=== PATIENT | female | born 1960 | race Caucasian/White ===

== ENCOUNTER 2018-09-17 12:58 | Inpatient (IN) | payer MEDICARE ==
[~2018-09-17] VITALS: Ht 165.1 cm; Wt 135.6 kg
[2018-09-17] MEDS ORDERED: MOBIC7.5 MG PO (13:08)
[2018-09-17] MEDS ORDERED: EFFIENT10 MG PO (13:09)
[2018-09-17] MEDS ORDERED: LASIX20 MG PO (13:09)
[2018-09-17] MEDS ORDERED: TOPROL XL100 MG PO (13:10)
[2018-09-17] MEDS ORDERED: KLONOPIN0.5 MG PO (13:10)
[2018-09-17] MEDS ORDERED: TRAZODONE HCL150 MG PO (13:10)
[2018-09-17] MEDS ORDERED: CRESTOR10 MG PO (13:11)
[2018-09-17] MEDS ORDERED: PRINIVIL20 MG PO (13:11)
[2018-09-17] MEDS ORDERED: ULTRAM50 MG PO (13:12)
--- NOTE | 2018-09-17 14:00 | NUR ---
LINEN CHANGE AND NEW BRIEF. PT RED AND SENSITIVE IN THE PERINEAL AREA. PT TOLERATED WELL. CALL LIGHT WITHIN REACH WILL CONTINUE TO MONITOR.
[2018-09-17 14:30] LABS: ALBUMIN 3.5 g/dL (3.4-5.0); ANION GAP 13.7 mmol/L (8-16); BILIRUBIN - TOTAL 0.51 mg/dL (0.2-1.3); CALCIUM 8.9 mg/dL (8.5-10.1); CARBON DIOXIDE 25.3 mmol/L (21.0-32.0); CREATININE - SERUM 1.3 mg/dL (0.6-1.3); PROTEIN - SERUM 7.3 g/dL (6.4-8.2)
[2018-09-17 14:33] LABS: TROPONIN-I 0.042 ng/mL (0.000-0.060)
[2018-09-17 14:54] LABS: APPEARANCE HAZY (CLEAR); BILIRUBIN NEGATIVE (NEGATIVE); COLOR YELLOW (YELLOW); GLUCOSE NEGATIVE (NEGATIVE); KETONE NEGATIVE (NEGATIVE); NITRITE NEGATIVE (NEGATIVE); PROTEIN NEGATIVE (NEGATIVE); SPECIFIC GRAVITY 1.025 (1.005-1.020); UROBILINOGEN NORMAL (NORMAL)
[2018-09-17 14:55] LABS: BACTERIA FEW /hpf (NONE SEEN); EPITHELIAL CELLS 0-5 /hpf (0-5); RED CELLS - URINE 0-5 /hpf (0-5)
[2018-09-17 14:56] LABS: MUCUS <1+ /lpf (NONE SEEN)
[2018-09-17 15:05] LABS: HEMATOCRIT 45.4 % (36.0-48.0); HEMOGLOBIN 14.8 g/dL (12-16); MCH 31.7 pg (26.0-34.0); MCHC 32.6 g/dL (31.0-37.0); MCV 97.2 fL (80.0-100.0); MEAN PLATELET VOLUME 10.3 fL (7.4-10.4); PLATELET COUNT 94 10x3/uL (130-400); RBC 4.67 10x6/uL (4.00-5.40); RDW 13.8 % (11.5-14.5); WBC 3.2 10x3/uL (4.8-10.8)
[2018-09-17 18:07] LABS: LYMPHOCYTES 32 % (15-50); MONOCYTES 1 % (2-11); NEUTROPHILS 67 % (40-80); PLATELET ESTIMATE DECREASED
--- NOTE | 2018-09-17 19:18 | NUR ---
ANSWERED PT'S CALL LIGHT, PT ASSISTED IN USING PHONE IN ROOM. DENIES ANY FURTHER NEEDS.
[2018-09-17 20:25] VITALS: BP 147/63
--- NOTE | 2018-09-17 20:30 | NUR ---
VERBAL ORDER PER DR. PABLO TO INSERT FECAL MANAGEMENT SYSTEM.
--- NOTE | 2018-09-17 21:00 | NUR ---
EDUAR CARE PROVIDED TO PT AND FECAL MANAGEMENT SYSTEM PLACED, PT TOLERATED WELL. BED LINENS CHANGED. PT DENIES ANY NEEDS. WILL CONTINUE TO MONITOR.
--- NOTE | 2018-09-17 22:40 | NUR ---
PT ARRIVED TO ROOM 1203 PT IS AAO, LEFT AC 20G WITH NS INFUSING. RECTAL TUBE NOTED. S1S2 RRR LUNGS CLEAR. ABDOMEN IS SOFT, OBESE HYPER ACTIVE UPPER QUAD ACTIVE LOWER QUADS. PT HAS REDNESS UNDER ABDOMEN FOLD. REDNESS AND EXCORIATION ON BUTTOCK AND EDUAR AREA FROM DIARRHEA. PT IS CLEAN AT THIS TIME. NO S/S OF DISTRESS. DENIES ANY NEEDS. WILL CPOC
[2018-09-17] MEDS ORDERED: LYRICA100 MG PO (22:43)
--- NOTE | 2018-09-17 23:29 | NUR ---
PT LEFT AC 20G IV TENDER AND PT STATES DISCOMFORT. REMOVED IV AND PLACED A 22G PIV AND STARTED NS ORDERED. WILL CPOC
[2018-09-18] VITALS (7 sets, daily range): BP systolic 136–195; BP diastolic 49–82; Ht 165.1 cm; Wt 135.6 kg
--- NOTE | 2018-09-18 01:20 | NUR ---
PT INCONT A LARGE AMOUNT OF URINE, COMPLETE BED CHANGE. PT REPOSITONED. RECTAL TUBE INTACT. PT WILL CALL FOR ASSIST WHEN NEEDED. NO S/S OF DISTRESS. BEDLOW AND CALL LIGHT IN REACH. WILL CPOC
--- NOTE | 2018-09-18 03:10 | NUR ---
PT DOCUMENTATION SUPERVISOR LIGHT, PT INCONT OF URINE, THIS RN AND MINAL CISNEROS, RN TO ROOM, PT CLEANED UP WITH WET WARM WIPES, BUTT PASTE APPLIED, RECTAL TUBE INTACT, COMPLETE BEDDING CHANGE, PT DENIES FURTHER NEEDS, BED IN LOW POSITION, SIDE RAILS X 2, CALL LIGHT IN REACH
[2018-09-18 06:43] LABS: HEMATOCRIT 40.6 % (36.0-48.0); HEMOGLOBIN 13.3 g/dL (12-16); MCH 31.3 pg (26.0-34.0); MCHC 32.8 g/dL (31.0-37.0); MCV 95.5 fL (80.0-100.0); MEAN PLATELET VOLUME 10.5 fL (7.4-10.4); PLATELET COUNT 88 10x3/uL (130-400); RBC 4.25 10x6/uL (4.00-5.40); RDW 13.7 % (11.5-14.5); WBC 2.6 10x3/uL (4.8-10.8)
[2018-09-18 07:06] LABS: BILIRUBIN - TOTAL 0.63 mg/dL (0.2-1.3); CALCIUM 8.8 mg/dL (8.5-10.1); CARBON DIOXIDE 21.9 mmol/L (21.0-32.0); MAGNESIUM - SERUM 2.1 mg/dL (1.8-2.4); PHOSPHOROUS 2.3 mg/dL (2.5-4.9); POTASSIUM - SERUM 3.9 mmol/L (3.5-5.1); PROTEIN - SERUM 6.7 g/dL (6.4-8.2)
[2018-09-18 07:11] LABS: CREATININE - SERUM 0.9 mg/dL (0.6-1.3)
--- NOTE | 2018-09-18 08:43 | NUR ---
INCONT OF BLADDER. PATIENT CLEANED AND LINENS CHANGED BY RETORT LOAD EXPEDITER.
[2018-09-18 09:40] LABS: LYMPHOCYTES 20 % (15-50); MONOCYTES 10 % (2-11); NEUTROPHILS 64 % (40-80); PLATELET ESTIMATE DECREASED
--- NOTE | 2018-09-18 12:50 | NUR ---
PT WAS TO BE NPO UNTIL AFTER SCAN, SIGN ON DOOR STATES NPO UNTIL AFTER SCAN AT 130, FANS BROUGHT PT TRAY INTO ROOM AND WHEN I HAD A CHANCE TO GO IN PT HAD EATEN HER PIE AND JUST OPENED CHIPS, TOOK TRAY AWAY AND CALLING NUCLEAR MED
--- NOTE | 2018-09-18 13:13 | NUR ---
RECEIVED CALL BACK FROM [facility] WITH NUCLEAR MEDS. STATED PT MUST BE NPO FOR 6 HOURS AND NO PAIN MEDS FOR SCAN, STATES SCAN TAKE AT LEAST 2 HOURS SO SHE WILL HAVE TO DO IN THE MORNING, ADVISED WILL HAVE PT NPO AFTR MIDNIGHT AND PLACE ORDER IN SYSTEM. CONTINUE WITH PLAN OF CARE
--- NOTE | 2018-09-18 20:37 | NUR ---
PATIENT RESTING IN BED WITH NO S/S OF DISTRESS. ADMINISTERED MEDS PER ORDERS. PATIENT DENIES OTHER NEEDS AT THIS TIME. BED IN LOWEST POSITION AND CALL LIGHT WITHIN REACH. ENCOURAGED THE PATIENT TO CALL IF SHE HAS NEEDS. WILL CONTINUE TO MONITOR. PATIENT REQUESTED PAIN MEDICATION FOR 8/10 PAIN. ADMINISTERED
--- NOTE | 2018-09-18 21:21 | NUR ---
PATIENT RESTING IN BED WITH NO S/S OF DISTRESS. ADMINISTERED MEDS PER ORDERS. PATIENT DENIES OTHER NEEDS AT THIS TIME. CLEANED PATIENT UP AFTER INCONTINENT EPISODE. BED IN LOWEST POSITION AND CALL LIGHT WITHIN REACH. ENCOURAGED THE PATIENT TO CALL IF SHE HAS NEEDS. WILL CONTINUE TO MONITOR.
[2018-09-19 00:52] VITALS: BP 99/46
[2018-09-19 05:00] VITALS: BP 136/63
[2018-09-19 07:22] LABS: BASOPHILS 0 % (0-2); EOSINOPHILS 2.3 % (0-7); HEMOGLOBIN 11.9 g/dL (12-16); IMMATURE GRANULOCYTES 0.4 % (0-5); LYMPHOCYTES 28.5 % (15-50); MCH 31.2 pg (26.0-34.0); MCHC 32.2 g/dL (31.0-37.0); MCV 96.9 fL (80.0-100.0); MEAN PLATELET VOLUME 10.7 fL (7.4-10.4); MONOCYTES 14.8 % (2-11); PLATELET COUNT 86 10x3/uL (130-400); RBC 3.82 10x6/uL (4.00-5.40); RDW 13.8 % (11.5-14.5); WBC 2.6 10x3/uL (4.8-10.8)
[2018-09-19 07:30] LABS: ALBUMIN 2.7 g/dL (3.4-5.0); ANION GAP 12.1 mmol/L (8-16); BILIRUBIN - TOTAL 0.52 mg/dL (0.2-1.3); CALCIUM 8.6 mg/dL (8.5-10.1); CARBON DIOXIDE 24.8 mmol/L (21.0-32.0); POTASSIUM - SERUM 3.9 mmol/L (3.5-5.1); PROTEIN - SERUM 5.7 g/dL (6.4-8.2)
--- NOTE | 2018-09-19 07:30 | NUR ---
PATIENT ADMITTED FOR DIARRHEA, NPO FOR PIP SCAN THIS AM. NO BM REPORTED SINCE YESTERDAY. PATIENT DENIES NEEDS AT THIS TIME. CL IN REACH
[2018-09-19 08:00] VITALS: BP 124/50
[2018-09-19 18:47] VITALS: BP 165/60
--- NOTE | 2018-09-19 19:29 | NUR ---
PATIENT SITTING UP IN CHAIR WITH NO S/S OF DISTRESS. CLEANED PATIENT UP AFTER INCONTINENT EPISODE. PATIENT DENIES OTHER NEEDS AT THIS TIME. BED IN LOWEST POSITION AND CALL LIGHT WITHIN REACH. ENCOURAGED THE PATIENT TO CALL IF SHE HAS NEEDS. WILL CONTINUE TO MONITOR.
[2018-09-19 20:00] VITALS: BP 177/74
--- NOTE | 2018-09-19 20:26 | NUR ---
CELANED PATIENT UP AFTER INCONTINENT EPISODE AND ASSISTED HER FROM THE CHAIR BACK TO BED. ADMINISTERED MEDS PER ORDERS. PATIENT DENIES OTHER NEEDS AT THIS TIME. BED IN LOWEST POSITION AND CALL LIGHT WITHIN REACH. ENCOURAGED THE PATIENT TO CALL IF SHE HAS NEEDS. WILL CONTINUE TO MONITOR.
[2018-09-20 00:58] VITALS: BP 131/59
[2018-09-20 04:00] VITALS: BP 150/65
[2018-09-20 07:54] VITALS: BP 137/58
[2018-09-20 08:03] LABS: HEMATOCRIT 37.2 % (36.0-48.0); MCH 31.2 pg (26.0-34.0); MCHC 32.3 g/dL (31.0-37.0); MCV 96.6 fL (80.0-100.0); MEAN PLATELET VOLUME 10.9 fL (7.4-10.4); PLATELET COUNT 82 10x3/uL (130-400); RBC 3.85 10x6/uL (4.00-5.40); WBC 2.3 10x3/uL (4.8-10.8)
[2018-09-20 08:13] LABS: ALBUMIN 2.6 g/dL (3.4-5.0); ANION GAP 9.3 mmol/L (8-16); BILIRUBIN - TOTAL 0.37 mg/dL (0.2-1.3); CALCIUM 8.9 mg/dL (8.5-10.1); CARBON DIOXIDE 27.8 mmol/L (21.0-32.0); CREATININE - SERUM 0.9 mg/dL (0.6-1.3); MAGNESIUM - SERUM 1.8 mg/dL (1.8-2.4); POTASSIUM - SERUM 4.1 mmol/L (3.5-5.1); PROTEIN - SERUM 5.8 g/dL (6.4-8.2)
[2018-09-20 10:07] LABS: EOSINOPHILS 1 % (0-7); LYMPHOCYTES 22 % (15-50); MONOCYTES 10 % (2-11); NEUTROPHILS 61 % (40-80); PLATELET ESTIMATE DECREASED
[2018-09-20 11:17] VITALS: BP 142/53
--- NOTE | 2018-09-20 13:21 | NUR ---
Nutrition Follow Up: Pt stated that her appetite is good. RD encouraged pt to continue increasing po intake as able and to make staff aware of any food preferences. Diet: Regular PO Intake: 67% meal avg BM: 09/18/18 Labs reviewed Meds noted including Lasix Rec continue current diet. Will honor food preferences. RD following.
--- NOTE | 2018-09-20 13:25 | NUR ---
PT NEEDING A BONE MARROW BIOPSY. PT IS ON EFFIENT AND IT WOULD HAVE TO BE HELD. NOTIFIED IN PERSON AND HE STATES PT CAN HAVE IT DONE AN OUTPATIENT. NOTIFIED SPECIALS AND WILL HAVE IT RESCHEDULED.
--- NOTE | 2018-09-20 14:27 | NUR ---
PT C/O GENERALIZED R.SIDE BACK PAIN. REQUESTING AND PROVIDED WITH PRN TRAMADOL. PT VOICED THANKS AND DENIES ANY FURTHER NEEDS AT THIS TIME. PT IS SITTING UP IN BEDSIDE CHAIR AND STATES IT FEELS GOOD TO BE OOB. WILL CTM.
[2018-09-20 15:28] VITALS: BP 153/68
--- NOTE | 2018-09-20 15:52 | NUR ---
PT C/O BEING WET AND INCONTINENT AND STATES SHE NEEDS CHANGED. UPON ASSISTING HER I ASKED HER WHAT SHE DOES AT HOME AND PT STATES SHE WEARS A BRIEF AND URINATES IN IT AND THEN JUST CHANGES IT. WILL PROVIDE PT WITH BRIEFS AND ENCOURAGE HER TO STAY INDEPENDENT WITH TOILETING SHE WAS AT HOME. PT DEMONSTRATED SHE GOOD DO IT WITH SAFE STEADY GAIT AND BALANCE. THERAPY WORKED WITH HER AND STATES SHE IS SAFE FOR US TO ASSIST TO AND FROM CHAIR AND AROUND ROOM. ENCOURAGED PT TO CALL US SO WE CAN MONITER HOWEVER STAY INDEPENDENT AND PT VERBALIZED UNDERSTANDING. NO FURTHER NEEDS AT THIS TIME. WILL CTM.
--- NOTE | 2018-09-20 20:12 | NUR ---
PATIENT RESTING IN BED AND DENIES NEEDS AT THIS TIME. ADMINISTERED MEDS PER ORDERS. PATIENT DENIES OTHER NEEDS AT THIS TIME. BED IN LOWEST POSITION AND CALL LIGHT WITHIN REACH. ENCOURAGED PATIENT TO CALL IF SHE HAS NEEDS. WILL CONTINUE TO MONITOR.
[2018-09-20 21:01] VITALS: BP 159/56
[2018-09-21 02:01] VITALS: BP 134/66
[2018-09-21 07:56] LABS: BASOPHILS 0 % (0-2); EOSINOPHILS 1.5 % (0-7); HEMATOCRIT 37.6 % (36.0-48.0); HEMOGLOBIN 12.3 g/dL (12-16); IMMATURE GRANULOCYTES 0.4 % (0-5); LYMPHOCYTES 24.6 % (15-50); MCH 31.1 pg (26.0-34.0); MCHC 32.7 g/dL (31.0-37.0); MCV 94.9 fL (80.0-100.0); MEAN PLATELET VOLUME 10.5 fL (7.4-10.4); MONOCYTES 13.8 % (2-11); NEUTROPHILS 59.7 % (40-80); PLATELET COUNT 84 10x3/uL (130-400); RBC 3.96 10x6/uL (4.00-5.40); RDW 13.5 % (11.5-14.5); WBC 2.6 10x3/uL (4.8-10.8)
[2018-09-21 08:08] VITALS: BP 128/48
[2018-09-21 08:23] LABS: ALBUMIN 2.8 g/dL (3.4-5.0); BILIRUBIN - TOTAL 0.43 mg/dL (0.2-1.3); CALCIUM 8.4 mg/dL (8.5-10.1); CARBON DIOXIDE 26.7 mmol/L (21.0-32.0); MAGNESIUM - SERUM 1.7 mg/dL (1.8-2.4); POTASSIUM - SERUM 3.7 mmol/L (3.5-5.1)
[2018-09-21 08:27] LABS: PH - STOOL 6.5 (7.0-7.5)
--- NOTE | 2018-09-21 08:59 | NUR ---
AM MEDS GIVEN AT THIS TIME. PT A/O X4, RESP EVEN AND NONLABORED ON RA. RT UPPER ARM IV INFUSING NS 100CC/HR. PT DENIES ANY NEEDS AT THIS TIME. CALL LIGHT IN REACH, NAD NOTED, WILL CONTINUE PLAN OF CARE.
[2018-09-21 12:39] VITALS: BP 141/54
--- NOTE | 2018-09-21 14:44 | MORECARE ---
CASE MANAGEMENT DISCHARGE SUMMARY PATIENT: JANELL FRANKLIN UNIT: [id number] ADM DATE: 09/18/18 AGE: 58 : 56 SEX: F ROOM/BED: D.1202 AUTHOR: LUCIANA DELGADO PHYSICIAN: REFERRING PHYSICIAN: ROSEANN HARRISON MD DATE OF SERVICE: 09/21/18 Discharge Plan Patient Name: JANELL FRANKLIN [facility] : 1960 Planned Disposition: Home Anticipated Discharge Date: 09/21/18 Discharge Date: Expected LOS: 3 Initial Reviewer: [email or web address] Initial Review Date: 09/17/2018 Generated: 09/21/18 3:44 pm Patient Name: JANELL FRANKLIN Page [phone] at 1444 All edits/amendments must be made on the electronic document DICTATION DATE: 09/21/181442 PUBLICATION SPECIALIST: WILMER 09/21/181442 RPT#: [id number] DC DATE: STATUS: ADM IN [facility] [address] [place] [address] END OF REPORT
--- NOTE | 2018-09-21 14:52 | MORECARE ---
CASE MANAGEMENT DISCHARGE SUMMARY PATIENT: JANELL FRANKLIN UNIT: [id number] ADM DATE: 09/18/18 AGE: 58 : 56 SEX: F ROOM/BED: D.1202 AUTHOR: LUCIANA DELGADO PHYSICIAN: REFERRING PHYSICIAN: ROSEANN HARRISON MD DATE OF SERVICE: 09/21/18 Discharge Plan Patient Name: JANELL FRANKLIN Facility: [facility]:[place] : 1960 Planned Disposition: Home Anticipated Discharge Date: 09/21/18 Discharge Date: Expected LOS: 3 Initial Reviewer: [email or web address] Initial Review Date: 09/17/2018 Generated: 09/21/18 3:51 pm DCPIA - Discharge Planning Initial Assessment Updated by [email or web address]: Phoebe Leone on 09/21/18 2:46 pm * Is the patient Alert and Oriented? Yes * PCP Dr. Holcomb [facility] * Pharmacy [facility] in [place], [place] * Preadmission Environment Home with Family * ADLs Partial Dependent * Partial ADLs (Assistance needed) Bathing Dressing Medication Management Toileting * Equipment Rolling Walker Shower Chair * Other Equipment Rollator * List name and contact numbers for known caregivers / representatives who currently or will assist patient after discharge: Radha Blakely, Daughter, * Verbal permission to speak to the caregivers and representatives has been obtained from the patient. N/A * Community resources currently utilized None * Additional services required to return to the preadmission environment? No * Can the patient safely return to the preadmission environment? Yes * Has this patient been hospitalized within the prior 30 days at any hospital? No Last DP export: 09/21/18 1:44 p Patient Name: JANELL FRANKLIN Page [id number] at 1452 All edits/amendments must be made on the electronic document DICTATION DATE: 09/21/181450 MACHINE ETCHER: WILMER 09/21/181450 RPT#: [id number] DC DATE: STATUS: ADM IN [facility] [address] [place] [address] END OF REPORT
--- NOTE | 2018-09-21 15:02 | MORECARE ---
CASE MANAGEMENT DISCHARGE SUMMARY PATIENT: JANELL FRANKLIN UNIT: [id number] ADM DATE: 09/18/18 AGE: 58 : 56 SEX: F ROOM/BED: D.1202 AUTHOR: LUCIANA DELGADO PHYSICIAN: REFERRING PHYSICIAN: ROSEANN HARRISON MD DATE OF SERVICE: 09/21/18 Discharge Plan Patient Name: JANELL FRANKLIN Facility: [facility]:[place] : 1960 Planned Disposition: Home Anticipated Discharge Date: 09/21/18 Discharge Date: Expected LOS: 3 Initial Reviewer: [email or web address] Initial Review Date: 09/17/2018 Generated: 09/21/18 4:02 pm Comments DCP- Discharge Planning Updated by [email or web address]: Phoebe Leone on 09/21/18 1:[address] Patient Name: JANELL FRANKLIN Admission Status: ER Accout number: [id number] Admission Date: 09-18-2018 : 1960 Admission Diagnosis: Attending: ROSEANN HARRISON Current LOS: 3 Anticipated DC Date: 09-21-2018 Planned Disposition: Home Primary Insurance: MEDICARE A & B Discharge Planning Comments: CM met with patient about discharge planning / needs. Patient states her plan is to return to home where she lives with her daughter, Radha Blakely ([phone]); her son-in-law and her 9yr old grandson. Patient states she is partially dependent. She requires assistance with bathing, medication management, toileting, and is modified independent with dressing. Denies needs or concerns related to discharge. States home environment is safe. Denies need for home health, but states she has requested personal care and incontinent supplies with Dr. Holcomb but hasn't received either yet. CM called Dr. Holcomb's office. Spoke with his nurse who informed CM that she is faxing the orders today. Personal Care will be set up through [facility] and Incontinent supplies will be set up with [facility]. CM relayed this information to patient and gave her phone numbers for these agencies. CM explained and served DC IMM. Patient verbalized understanding and satisfaction with discharge plans. Patient's daughter will transport her home today. Supervisor Sample Preparation: Phoebe Leone DCPIA - Discharge Planning Initial Assessment Updated by [email or web address]: Phoebe Leone on 09/21/18 2:46 pm * Is the patient Alert and Oriented? Yes * PCP Dr. Holcomb, [facility] * Pharmacy [facility] in [place], [place] * Preadmission Environment Home with Family * ADLs Partial Dependent * Partial ADLs (Assistance needed) Bathing Dressing Medication Management Toileting * Equipment Rolling Walker Shower Chair * Other Equipment Rollator * List name and contact numbers for known caregivers / representatives who currently or will assist patient after discharge: Radha Blakely, Daughter, * Verbal permission to speak to the caregivers and representatives has been obtained from the patient. N/A * Community resources currently utilized None * Additional services required to return to the preadmission environment? No * Can the patient safely return to the preadmission environment? Yes * Has this patient been hospitalized within the prior 30 days at any hospital? No Coverage Notice Reviewer: [email or web address] - Phoebe Leone Notice Issued Date-Time: 09/21/2018 14:08 Notice Type: IM Discharge Notice Notice Delivered To: Patient Relationship to Patient: Self Industrial Electrical Engineer Name: Delivery Method: HAND - Hand Delivered Kayla Days: Prior Verbal Notification: Recipient Understood Notice: Yes Recipient Signature: Yes Med Rec Note Co-signed by Attending: Coverage Notice Comment: Last DP export: 09/21/18 1:52 p Patient Name: JANELL FRANKLIN Page [phone] at 1502 All edits/amendments must be made on the electronic document DICTATION DATE: 09/21/18 1501 CAP COVERER: WILMER 09/21/18 1501 RPT#: [id number] DC DATE: STATUS: ADM IN [facility] [address] [place] [address] END OF REPORT
--- NOTE | 2018-09-21 15:30 | NUR ---
PROVIDED VERBAL AND WRITTEN DISCHARGE TEACHING TO PT WHO VERBALIZED UNDERSTANDING REGARDING TEACHING. D/C RT UPPER ARM IV WITH TIP INTACT. PT WAITING ON RIDE, WILL NOTIFY THIS NURSE WHEN READY FOR WHEELCHAIR.
[2018-09-21 16:13] VITALS: BP 138/69
--- NOTE | 2018-09-21 17:34 | NUR ---
PT LEFT UNIT VIA WHEELCHAIR, WITH ALL BELONGINGS. ACCOMPANIED BY FAMILY. NAD NOTED.
--- NOTE | 2018-09-22 10:15 | MORECARE ---
CASE MANAGEMENT DISCHARGE SUMMARY PATIENT: JANELL FRANKLIN UNIT: [id number] ADM DATE: 09/18/18 AGE: 58 : 56 SEX: F ROOM/BED: D.1202 AUTHOR: LUCIANA DELGADO PHYSICIAN: REFERRING PHYSICIAN: ROSEANN HARRISON MD DATE OF SERVICE: 09/22/18 Discharge Plan Patient Name: JANELL FRANKLIN Facility: [facility]:[place] : 1960 Planned Disposition: Home Anticipated Discharge Date: 09/21/18 Discharge Date: 09/21/2018 Expected LOS: 3 Initial Reviewer: [email or web address] Initial Review Date: 09/17/2018 Generated: 09/22/18 11:15 am Comments DCP- Discharge Planning Updated by [email or web address]: Phoebe Leone on 09/21/18 1:[address] Patient Name: JANELL FRANKLIN Admission Status: ER Accout number: [id number] Admission Date: 09-18-2018 : 1960 Admission Diagnosis: Attending: ROSEANN HARRISON Current LOS: 3 Anticipated DC Date: 09-21-2018 Planned Disposition: Home Primary Insurance: MEDICARE A & B Discharge Planning Comments: CM met with patient about discharge planning / needs. Patient states her plan is to return to home where she lives with her daughter, Radha Blakely ([phone]); her son-in-law and her 9yr old grandson. Patient states she is partially dependent. She requires assistance with bathing, medication management, toileting, and is modified independent with dressing. Denies needs or concerns related to discharge. States home environment is safe. Denies need for home health, but states she has requested personal care and incontinent supplies with Dr. Holcomb but hasn't received either yet. CM called Dr. Holcomb's office. Spoke with his nurse who informed CM that she is faxing the orders today. Personal Care will be set up through [facility] and Incontinent supplies will be set up with [facility]. CM relayed this information to patient and gave her phone numbers for these agencies. CM explained and served DC IMM. Patient verbalized understanding and satisfaction with discharge plans. Patient's daughter will transport her home today. Assembler Trim: Phoebe Leone DCPIA - Discharge Planning Initial Assessment Updated by [id number]: Phoebe Leone on 09/21/18 2:46 pm * Is the patient Alert and Oriented? Yes * PCP Dr. Holcomb, [facility] * Pharmacy [facility] in [place], [place] * Preadmission Environment Home with Family * ADLs Partial Dependent * Partial ADLs (Assistance needed) Bathing Dressing Medication Management Toileting * Equipment Rolling Walker Shower Chair * Other Equipment Rollator * List name and contact numbers for known caregivers / representatives who currently or will assist patient after discharge: Radha Blakely, Daughter, * Verbal permission to speak to the caregivers and representatives has been obtained from the patient. N/A * Community resources currently utilized None * Additional services required to return to the preadmission environment? No * Can the patient safely return to the preadmission environment? Yes * Has this patient been hospitalized within the prior 30 days at any hospital? No Coverage Notice Reviewer: [id number] - Phoebe Leone Notice Issued Date-Time: 09/21/2018 14:08 Notice Type: IM Discharge Notice Notice Delivered To: Patient Relationship to Patient: Self Psychologist Experimental Name: Delivery Method: HAND - Hand Delivered Kayla Days: Prior Verbal Notification: Recipient Understood Notice: Yes Recipient Signature: Yes Med Rec Note Co-signed by Attending: Coverage Notice Comment: Last DP export: 09/21/18 2:02 p Patient Name: JANELL FRANKLIN Page [phone] at 1015 All edits/amendments must be made on the electronic document DICTATION DATE: 09/22/18 1014 BOTTLE HOUSE QUALITY CONTROL TECHNICIAN: WILMER 09/22/18 1014 RPT#: [id number] DC DATE:09/21/18 STATUS: DIS IN [facility] [address] [place] [address] END OF REPORT
[2018-09-22 11:24] LABS: HEPATITIS C ANTIBODY 0.1 S/CO RAT (0.0-0.9)
[2018-09-22 16:14] LABS: BASO (ABSOLUTE) 0.1 x10E3/uL (0.0-0.2); BASOS 2 % (Not Estab.); CD4 - % CD4 POS. LYMPH 12.9 % (30.8-58.5); CD4 - ABSOLUTE CD4 HELPER 103 /uL (359-1519); EOS 1 % (Not Estab.); HEMATOLOGY COMMENTS Note: (()); HEMOGLOBIN 12.3 g/dL (11.1-15.9); LYMPHS 29 % (Not Estab.); LYMPHS (ABSOLUTE) 0.8 x10E3/uL (0.7-3.1); MCH 31.5 pg (26.6-33.0); MCHC 33.2 g/dL (31.5-35.7); MCV 95 fL (79-97); MONOCYTES 11 % (Not Estab.); MONOCYTES (ABSOLUTE) 0.3 x10E3/uL (0.1-0.9); NEUTROPHILS 57 % (Not Estab.); NEUTROPHILS (ABSOLUTE) 1.5 x10E3/uL (1.4-7.0); PLATELETS 89 x10E3/uL (150-379); RBC 3.91 x10E6/uL (3.77-5.28); RDW 14.3 % (12.3-15.4); WBC 2.7 x10E3/uL (3.4-10.8)
[2018-09-27 20:07] LABS: OVA + PARASITE EXAM Final report (())
== END 2018-09-21 17:46 | disposition home or self-care (01) | DRG 977 ==
LOC: D.ER 12:58 → D.M3 21:22 → OBSVTIME 21:30 → D.M3 09-18 15:55
PROVIDERS: Family Medicine; Student in an Organized Health Care Education/Training Program; ADMIT Emergency Medicine; ATTEND Emergency Medicine
DX: B20 Human immunodeficiency virus [HIV] disease (principal); N17.9 Acute kidney failure, unspecified; E87.0 Hyperosmolality and hypernatremia; F17.213 Nicotine dependence, cigarettes, with withdrawal; K80.80 Other cholelithiasis without obstruction; I10 Essential (primary) hypertension; I25.10 Atherosclerotic heart disease of native coronary artery without angina pectoris; J44.9 Chronic obstructive pulmonary disease, unspecified; K80.20 Calculus of gallbladder without cholecystitis without obstruction

== ENCOUNTER 2018-10-07 02:33 | Observation (INO) | payer MEDICARE ==
[~2018-10-07] VITALS: Ht 165.1 cm; Wt 124.3 kg
--- NOTE | ~2018-10-07 | HEMODYNAMI ---
PATIENT:JANELL FRANKLIN MEDICAL RECORD: [id number] : 56 LOCATION:D.MS [facility]10 ADMISSION DATE: 10/07/18 Generatedon:10/07/201812:40 Patient name: JANELL FRANKLIN Patient #: [id number] SSN: : 1960 Date of study: 10/07/2018 Page: Of Hemodynamic Procedure Report Patient Data Patient Demographics Procedure consent was obtained First Name: JANELL Gender: Female Last Name: RIGOBERTO : 1960 Patient #: [id number] Age: 58 year(s) Race: Unknown Additional ID: [id number] Contact details [address]: [address] [place] [address] [address]IVE State: [place] City: [place] Zip code: [address] Past Medical History Allergies: No known allergies Admission Admission Data Admission Date: 10/07/2018 Admission Time: 4:36 Room #: D.2210 Lab Results Lab Result Date: 10/07/2018 Lab Result Time: 8:19 Biochemistry Name Units Result Min Max BUN mg/dl 19 --(----)*- 7 18 Creatinine mg/dl 1 --(--*-)-- 0.6 1.3 CBC Name Units Result Min Max Hematocrit % 38.4 *-(----)-- 42 54 Hemoglobin g/dl 12.8 -*(----)-- 13.5 17.5 Procedure Procedure Types Cath Procedure Diagnostic Procedure [facility] w/Coronaries Sedation Charges Moderate Sedation up to 15 minutes Procedure Description Procedure Date Procedure Date: 10/07/2018 Procedure Start Time: 12:26 Procedure End Time: 12:39 Procedure Staff Name Function Jaime Byrne MD Performing Physician Jose Esqueda RT Monitor Sal Gastelum RN Nurse Aries Frias RT Scrub Procedure Data Cath Procedure Fluoroscopy Diagnostic fluoroscopy Total fluoroscopy Time: 1.5 time: 1.5 min min Diagnostic fluoroscopy Total fluoroscopy dose: dose: 318.59 mGy 318.59 mGy Contrast Material Contrast Material Type Amount (ml) Isovue 300 68 Entry Location Entry Primary Successful Side Size Upsize Upsize Entry Closure Succes sful Closure Location (Fr) 1 (Fr) 2 (Fr) Remarks Device Remarks Femoral Right 5 Fr Exoseal artery Estimated blood loss: 5 ml Diagnostic catheters Device Type Used For End Catheter Placement MULTIPACK JL 4.0 5Fr Procedure catheter MULTIPACK 3DRC 5Fr Procedure catheter MULTIPACK Pigtail 5 Fr Procedure catheter Procedure Complications No complications Procedure Medications Medication Administration Route Dosage Oxygen etCO2 Nasal cannula 2 l/min 0.9% NaCl I.V. 100 ml/hr Heparin Flush Bag added to field 2 bags (1000units/500ml NS) Lidocaine 2% added to field 20 Fentanyl I.V. 50 mcg Versed I.V. 1 mg Fentanyl I.V. 50 mcg Versed I.V. 1 mg Hemodynamics Rest HGB: 12.8 (g/dl) Heart Rate: 58 (bpm) Pressure Samples Time Site Value (mmHg) Purpose Heart Use Rate(bpm) 12:32 LV 144/12,31 Snapshot 67 12:33 AO 139/75(101) Pullback 71 12:33 LV 139/13,38 Pullback 71 Gradients Valve Time Site 1 Site 2 Mean SEP/DFP Peak To Heart Use (mmHg) (sec/min) Peak Rate (mmHg) (bpm) Aortic 12:33 LV AO 11 15 0 71 139/13,38 139/75(101) Calculations Valve P-P Mean Valve Index Valve Source Name Gradient Area Flow (cm2) Aortic 0 11 0 11 Snapshots Pre Cath Intra NCS Post Cath Vital Signs Time Heart Resp SPO2 etCO2 NIBP (mmHg) Rhythm Pain Sedation Rate (ipm) (%) (mmHg) Status Level (bpm) 12:13:20 59 16 97 36.2 187/105(150) NSR 0 (11) 10(A) , No pain 12:18:05 55 17 95 39.2 145/78(117) NSR 0 (11) 10(A) , No pain 12:23:51 60 17 94 23.3 145/75(118) NSR 0 (11) 9(A) , No pain 12:28:29 58 17 95 39.9 151/74(106) NSR 0 (11) 9(A) , No pain 12:33:10 72 16 94 33.1 134/75(119) NSR 0 (11) 9(A) , No pain 12:36:08 68 17 94 42.2 148/73(115) NSR 0 (11) 9(A) , No pain Medications Time Medication Route Dose Verified Delivered Reason Notes Effe ctiveness by by 12:11:54 Oxygen etCO2 2 Jaime Sal Per Nasal l/min Chavez Gastelum RN physician cannula 12:12:08 0.9% NaCl I.V. 100 Jaime Sal Per ml/hr Chavez Gastelum RN physician 12:12:21 Heparin Flush added 2 Jaime Sal used for Bag to bags Chavez Gastelum hat conditioner (1000units/500ml field NS) 12:13:32 Lidocaine 2% added 20ml Jaime Sal used for to vial Chavez Gastelum hat conditioner field 12:20:20 Fentanyl I.V. 50 Jaime Sal for mcg Chavez Gastelum RN sedation 12:20:29 Versed I.V. 1 mg Jaime Sal for Chavez Gastelum RN sedation 12:25:52 Fentanyl I.V. 50 Jaime Sal for mcg Chavez Gastelum RN sedation 12:25:55 Versed I.V. 1 mg Jaime Sal for Chavez Gastelum RN sedation Procedure Log Time Note 11:50:26 Sal Gastelum RN sent for patient. Start room use. 11:50:27 Time tracking: Regular hours (M-F 7:00 - 5:00) 11:50:30 Plan of Care:Hemodynamics will remain stable., Cardiac rhythm will remain stable., Comfort level will be maintained., Respiratory function will remain adequate., Patient/ family verbilizes understanding of procedure., Procedure tolerated without complication., Recovers from procedure without complications.. 12:02:38 Patient received from Med/Surg to CCL 3 Alert and oriented. Tansferred to table in Supine position. 12:02:40 Warm blankets applied, and maryse hugger turned on for patient comfort. 12:02:40 Correct patient and procedure confirmed by team. 12:02:41 Signed procedure consent form obtained from patient. 12:02:43 ECG and BP/O2 sat monitors applied to patient. 12:02:44 Pre-procedure instructions explained to patient. 12:02:44 Pre-op teaching completed and patient verbalized understanding. 12:02:55 H&P Date Dictated: 10/07/2018 Within 30 days and on chart.. 12:11:33 Vital chart was started 12:11:54 Oxygen 2 l/min etCO2 Nasal cannula was administered by Sal Gastelum RN; Per physician; 12:12:08 0.9% NaCl 100 ml/hr I.V. was administered by Sal Gastelum RN; Per physician; 12:12:21 Heparin Flush Bag (1000units/500ml NS) 2 bags added to field was administered by Sal Gastelum RN; used for procedure; 12:13:32 Lidocaine 2% 20ml vial added to field was administered by Sla Gastelum RN; used for procedure; 12:14:01 Baseline sample Acquired. 12:15:48 Rhythm: sinus rhythm 12:15:57 Full Disclosure recording started 12:16:01 Family unavailable. 12:16:03 Patient NPO since Midnight. 12:16:07 Patient allergic to No known allergies 12:16:10 Is the patient allergic to Iodine/contrast media? No. 12:16:12 Is patient on blood thinner?No 12:16:13 Patient diabetic? No. 12:16:16 Previous problem with sedation/anesthesia? No ? 12:16:17 Snore? Yes 12:16:20 Sleep apnea? No 12:16:21 Deviated septum? No 12:16:22 Opens mouth fully? Yes 12:16:22 Sticks out tongue? Yes 12:16:26 Airway obstruction? Yes COPD 12:16:33 Dentures? No LOST TEETH 12:17:00 Pre procedure: right posterior tibial pulse 1+ Palpable, but thready & weak; easily obliterated 12:17:02 Patient pain scale 0/10 ?. 12:17:07 IV patent on arrival in left antecubital with 0.9% NaCl at [facility] 12:19:27 Lab Result : BUN 19 mg/dl 12::27 Lab Result : Creatinine 1 mg/dl 12::27 Lab Result : Hemoglobin 12.8 g/dl 12:19:27 Lab Result : Hematocrit 38.4 % 12:19:30 Lab results completed and on chart. 12:19:32 Right groin area was prepped with chlora-prep and draped in sterile fashion 12:19:32 Alarms reviewed by R. N. 12:19:33 Sharps counted by scrub and verified by R.N. 12:19:35 Use device set Femoral Dx 12:19:36 ACIST Syringe (18382) opened to sterile field. 12:19:36 Bag Decanter (2002S) opened to sterile field. 12:19:36 Medline Cath Pack ([id number]) opened to sterile field. 12:19:37 ACIST Hand Control (84973) opened to sterile field. 12:19:38 ACIST Manifold (40368) opened to sterile field. 12:19:39 Tegaderm 4 x 4 (1626W) opened to sterile field. 12:19:40 DIAGNOSTIC Multipack 5Fr catheter set ([id number]) opened to sterile field. 12:19:45 DIAGNOSTIC WIRE .035 260cm J wire (648310) opened to sterile field. 12:19:47 SHEATH 5FR Laie (IDM860) opened to sterile field. 12:19:56 Physician arrived 12::56 --------ALL STOP TIME OUT------ 12:19:57 Final Timeout: patient, procedure, and site verified with staff and physician. All members of the team are in agreement. 12:19:58 Right groin site verified by team. 12:20:06 Maximum allowable Isovue 300 dose 300ml. Physician notified. (300ml for normal creatinines. For patients with creatinine of 1.7 or higher multiply weight(kg) x 5 divided by creatinine.) 12:20:09 Fire Safety Assessment: A--An alcohol-based skin anteseptic being used preoperatively., C--Open oxygen or nitrous oxide is being used., D--An ESU, laser, or fiber-optic light is being used. 12:20:12 Physical assessment completed. ASA score P 2 - A patient with mild systemic disease as per Jaime Byrne MD. 12:20:15 Sedation plan: IV Moderate Sedation Medication:Versed, Fentanyl 12:20:20 Fentanyl 50 mcg I.V. was administered by Sal Gastelum RN; for sedation; 12:20:29 Versed 1 mg I.V. was administered by Sal Gastelum RN; for sedation; 12:23:55 Zero performed for pressure channel P1 12:24:00 Zero performed for pressure channel P1 12:25:47 Zero performed for pressure channel P1 12::52 Fentanyl 50 mcg I.V. was administered by Sal Gastelum RN; for sedation; :: Versed 1 mg I.V. was administered by Sal Gastelum RN; for sedation; 12::37 Procedure started. 12::41 Local anesthetic to right femoral artery with Lidocaine 2% by Jaime Byrne MD.INITIAL ACCESS ONLY 12::50 A 5 Fr sheath was inserted into the Right Femoral artery 12::55 A MULTIPACK JL 4.0 5Fr catheter was advanced over the wire and used for Procedure. 12:29:06 LCA angiography performed. 12:30:05 Catheter exchanged over wire. 12:30:09 A MULTIPACK 3DRC 5Fr catheter was advanced over the wire and used for Procedure. 12:30:16 RCA angiography performed. 12:31:13 Catheter exchanged over wire. 12:31:17 A MULTIPACK Pigtail 5 Fr catheter was advanced over the wire and used for Procedure. 12:32:02 EXOSEAL 5Fr (EX500) opened to sterile field. 12:32:32 LV gram done using AREVALO 12::48 Injector settings: Ml/sec: 10, Volume: 20, 12:33:11 EF : 40 % 12:33:23 LV hemodynamics recorded. 12:33:39 Catheter removed. 12:34:02 Sheath removed intact; hemostasis achieved with Exoseal to the Right Femoral artery. 12:34:04 Procedure ended.(Physican Out) 12:36:41 Fluoroscopy time 01.50 minutes. 12::47 Fluoroscopy dose: 318.59 mGy 12:36:47 Flurop Dose total: 318.59 12:36:50 Contrast amount:Isovue 300 68ml. 12:36:52 Sharps counted by scrub and verified by R.N. 12:36:53 Insertion/operative site no bleeding no hematoma. 12:36:55 Post-op/insertion site Right Femoral artery dressed using a 4 x 4 and Tegaderm. 12:36:58 Post right femoral artery:stable, soft, clean and dry 12:37:00 Post Procedure Pulses reassessed and unchanged 12:37:01 Post-procedure physical assessment completed. ASA score P 2 - A patient with mild systemic disease as per Jaime Byrne MD. 12:37:04 Post procedure rhythm: unchanged. 12:37:07 Estimated blood loss: 5 ml 12:37:09 Post procedure instruction explained to patient.Patient verbalizes understanding. 12:37:09 Patient needs reinforcement of post procedure teaching. 12:38:25 Procedure type changed to Cath procedure, Diagnostic procedure, LHC, LHC w/Coronaries, Sedation Charges, Moderate Sedation up to 15 minutes 12:38:46 Procedure and supply charges have been captured, reviewed, submitted and are correct. 12:38:48 Procedure Complication : No complications 12:38:51 Vital chart was stopped 12:38:51 See physician's report for complete and final results. 12:38:59 Report given to Pre/Post Procedure Room. 12:39:02 Patient transfered to Pre/Post Procedure Room with Stretcher. 12:39:06 Procedure ended. 12:39:06 Full Disclosure recording stopped 12:39:13 End room use (Document Last) Device Usage Item Name Manufacture Quantity Catalog Hospital Part Current Minimal L ot# / Number Charge Number Stock Stock Serial# Code ACIST Acist 1 18020 369162 128425 833577 20 Syringe Medical (89542) Systems Inc Bag Microtek 1 2001S 955603 06887 153253 5 Decanter Medical Inc. () Medline Medline 1 [id number] 585471 17483 763484 5 Cath Pack ([id number]) ACIST Hand Acist 1 26376 313294 820536 563034 5 Control Medical (49830) Systems Inc ACIST Acist 1 26099 888524 344273 199053 5 Manifold Medical (15804) Systems Inc Tegaderm 4 3M 1 1626W 923533 251363 508698 5 x 4 (1626W) DIAGNOSTIC Cardinal 1 PR5471 434932 17796 991665 30 Multipack Health 5Fr catheter set (XM6078) DIAGNOSTIC St Willie 1 378140 070544 719366 151662 30 WIRE .035 260cm J wire (653853) SHEATH 5FR Terumo 1 NNP897 267398 567826 062749 5 Laie (TKK602) MULTIPACK Cardinal 1 757460 5 JL 4.0 5Fr Health catheter MULTIPACK Cardinal 1 730131 5 3DRC 5Fr Health catheter MULTIPACK Cardinal 1 230520 5 Pigtail 5 Health Fr catheter EXOSEAL 5Fr Cardinal 1 EX500 747558 393256 905603 10 (EX500) Health Signature Audit [place] Stage Time Signature Unsigned Intra-Procedure 10/07/2018 Jose Esqueda 12:40:23 PM RT(R) Signatures Monitor : Jose Esqueda RT Signature : Date : Time : [place] [id number] [place] [address]
[~2018-10-07 02:33] MED LIST: CRESTOR10 MG PO; EFFIENT10 MG PO; KLONOPIN0.5 MG PO; LASIX20 MG PO; LYRICA100 MG PO; MOBIC7.5 MG PO; PRINIVIL20 MG PO; TOPROL XL100 MG PO; TRAZODONE HCL150 MG PO; ULTRAM50 MG PO
--- NOTE | 2018-10-07 03:05 | NUR ---
PT GIVEN BLANKETS.
--- NOTE | 2018-10-07 03:42 | NUR ---
URINE SENT TO LAB.
[2018-10-07 04:02] LABS: APPEARANCE CLEAR (CLEAR); BILIRUBIN NEGATIVE (NEGATIVE); COLOR YELLOW (YELLOW); GLUCOSE NEGATIVE (NEGATIVE); KETONE SMALL mg/dL (NEGATIVE); NITRITE NEGATIVE (NEGATIVE); PROTEIN NEGATIVE (NEGATIVE); SPECIFIC GRAVITY 1.015 (1.005-1.020); UROBILINOGEN NORMAL (NORMAL)
[2018-10-07 04:26] LABS: CKMB 1.6 U/L (0.0-3.6); CREATINE KINASE 24 UL (21-215)
[2018-10-07 04:27] LABS: TROPONIN-I 0.073 ng/mL (0.000-0.060)
[2018-10-07 05:42] VITALS: BP 139/55; BMI 45.6
[2018-10-07] MEDS ORDERED: ALBUTEROL SULF8.5 GM INH (06:32)
[2018-10-07 09:23] VITALS: BP 142/71
[2018-10-07 09:28] LABS: CKMB 1.7 U/L (0.0-3.6); CREATINE KINASE 22 UL (21-215)
[2018-10-07 10:27] LABS: HEMATOCRIT 38.4 % (36.0-48.0); HEMOGLOBIN 12.8 g/dL (12-16); MCH 31.4 pg (26.0-34.0); MCHC 33.3 g/dL (31.0-37.0); MCV 94.1 fL (80.0-100.0); MEAN PLATELET VOLUME 10.6 fL (7.4-10.4); RBC 4.08 10x6/uL (4.00-5.40); RDW 13.3 % (11.5-14.5); WBC 2.9 10x3/uL (4.8-10.8)
[2018-10-07 10:31] LABS: ANION GAP 12.5 mmol/L (8-16); CALCIUM 9.6 mg/dL (8.5-10.1); CARBON DIOXIDE 27.5 mmol/L (21.0-32.0)
[2018-10-07 10:38] LABS: PLATELET COUNT 123 10x3/uL (130-400)
[2018-10-07 12:22] VITALS: BP 160/76
--- NOTE | 2018-10-07 13:05 | NUR ---
PATIENT RESTING, VSS ON ROOM AIR. RIGHT GROIN DRESSING IS CDI, NO S/S OF BLEEDING OR HEMATOMA. NO C/O PAIN, NUMBNESS, OR TINGLING. NO N/V.
[2018-10-07 13:09] VITALS: Ht 165.1 cm; Wt 124.3 kg
[2018-10-07 13:29] LABS: ANISOCYTOSIS OCC; BASOPHILS 1 % (0-2); EOSINOPHILS 3 % (0-7); LYMPHOCYTES 13 % (15-50); MONOCYTES 11 % (2-11); NEUTROPHILS 70 % (40-80); PLATELET ESTIMATE NORMAL
--- NOTE | 2018-10-07 13:35 | NUR ---
PATIENT RESTING, VSS ON ROOM AIR. RIGHT GROIN DRESSING IS CDI, NO S/S OF BLEEDING OR HEMATOMA. NO C/O PAIN, NUMBNESS, OR TINGLING.
--- NOTE | 2018-10-07 14:03 | NUR ---
PATIENT AWAKE, HEAD OF BED ELEVATED TO 30 DEGREES. RIGHT GRION DRESSING IS CDI, NO S/S OF BLEEDING OR HEMATOMA. NO C/O PAIN, NUMBNESS, OR TINGLING.
--- NOTE | 2018-10-07 14:30 | NUR ---
PATIENT HEAD OF BED ELEVATED TO 90 DEGREES, RIGHT GROIN DRESSING IS CDI. PATIENT SPOKE WITH DAUGHTER WHO WILL BE AVAILABLE TO PICK PATIENT UP AT 1500. VSS ON ROOM AIR. NO C/O PAIN, NUMBNESS, OR TINGLING.
--- NOTE | 2018-10-07 14:45 | NUR ---
PATIENT EDUCATION GIVEN REGARDING DISCHARGE INSTRUCTIONS, PATIENT VOICED UNDERSTANDING. IV REMOVED. RIGHT GROIN DRESSING IS CDI, NO S/S OF BLEEDING OR HEMATOMA.
--- NOTE | 2018-10-07 15:10 | NUR ---
PATIENT IS DRESSED AND READY TO GO, SPOKE WITH DAUGHTER WHO SAYS THAT SHE IS ON THE WAY.
--- NOTE | 2018-10-07 15:39 | NUR ---
1530 PT'S RIDE IS HERE. PT HAS ALL PERSONAL BELONGINGS AND DC INSTRUCTIONS. IS ALERT AND DENIES ANY C/O. PT ESCORTED TO PRIVATE AUTO VIA WC WITH FRIEND DRIVING HER HOME.
== END 2018-10-07 15:30 | disposition home or self-care (01) ==
LOC: D.ER 02:33 → OBSVTIME 04:36 → D.MS 04:36 → D.CLR 12:50
PROVIDERS: Emergency Medicine; ADMIT Internal Medicine Cardiovascular Disease; ATTEND Internal Medicine Cardiovascular Disease
DX: I25.10 Atherosclerotic heart disease of native coronary artery without angina pectoris (principal); I10 Essential (primary) hypertension; E78.5 Hyperlipidemia, unspecified; B20 Human immunodeficiency virus [HIV] disease; J44.9 Chronic obstructive pulmonary disease, unspecified; E11.40 Type 2 diabetes mellitus with diabetic neuropathy, unspecified

== ENCOUNTER 2019-12-28 12:40 | Inpatient (IN) | payer MEDICARE, MEDICAID ==
[~2019-12-28] VITALS: Ht 165.1 cm; Wt 137.3 kg
--- NOTE | ~2019-12-28 | EC ---
PATIENT:JANELL FRANKLIN DATE OF SERVICE: 12/28/19 SEX: F MEDICAL RECORD: [id number] DATE OF : [birth year] LOCATION:D. D.212 AGE OF PATIENT: 59 ADMISSION DATE: 12/28/19 REFERRING PHYSICIAN: INTERPRETING PHYSICIAN: CARMELLA BEAVERS MD ECHOCARDIOGRAM REPORT ECHO CHARGES 4 ECHO COMPLETE Date: 12/29/19 CLINICAL DIAGNOSIS: DYSPNEA ECHOCARDIOGRAPHIC MEASUREMENTS (adult normal given) AC root (d.<3.7cm) 2.5 cm LV Septum d (<1.2 cm> 1.4 cm Valve Excursion 1.4 cm LV Septum (systole) 1.5 cm Left Atria (s.<4.0cm> 4.0 cm LVPW d(<1.2cm) 1.0 cm RV (d.<2.3cm) 2.4 cm LVPW (sytole) 1.1 cm LV diastole(<5.6CM) 6.7 cm MV E-F(>70mm/sec) cm LV systole 6.0 cm LVOT Diameter 1.7 cm MV exc.(>10mm) cm Est.ejection fraction (50-75%) % DOPPLER: LVIT cm/sec A 89 cm/sec E 95 cm/sec LA cm/sec RVSP 18.9 mmHg LVOT 119 cm/sec AOP1/2T m/s Asc. Ao 177 cm/sec RVOT 70 cm/sec RA cm/sec PA 81 cm/sec AV Gradient Peak 12.5 mmHg AV Mean 6.7 mmHg AV Area 2.2 cm MV Gradient Peak 6.4 mmHg MV Mean 2.9 mmHg MV Area cm COMMENTS: Manager Financial Planning: Geeta [facility] Manager Documentation: 3 Dr. Keita TAPE# PACS Pericardial Effusion N DATE OF SERVICE: Adequate 2D, color flow imaging, spectral Doppler, and M-Mode. LVH is present. LV internal dimension is normal. Wall motion is normal. EF is greater than or equal to 55%. Aortic valve is tricuspid. No evidence of stenosis by Doppler interrogation. Left atrium is normal at 4.0 cm. Mitral valve shows no prolapse. Trace MR. Right-sided chambers are grossly normal. Mild TR. ECHOCARDIOGRAM REPORT [id number] JANELL FRANKLIN TRANSINT:[id number] Voice Confirmation ID: [id number] DOCUMENT ID: [id number] CARMELLA BEAVERS MD CC: [id number] DICTATION DATE: 12/29/19 1608 NURSE SANE: 12/29/19 2325 ADM IN [place] [id number] [place] [id number]
[~2019-12-28 12:40] MED LIST changes: +ALBUTEROL SULF8.5 GM INH
[2019-12-28] MEDS ORDERED: DOVATO (12:56)
[2019-12-28 13:52] VITALS: BP 107/62
[2019-12-28 13:53] LABS: HEMATOCRIT 41.9 % (36.0-48.0); HEMOGLOBIN 13.8 g/dL (12-16); MCH 33.7 pg (26.0-34.0); MCHC 32.9 g/dL (31.0-37.0); MCV 102.2 fL (80.0-100.0); MEAN PLATELET VOLUME 9.8 fL (7.4-10.4); PLATELET COUNT 113 10x3/uL (130-400); RDW 12.6 % (11.5-14.5); WBC 2.6 10x3/uL (4.8-10.8)
[2019-12-28 14:01] LABS: INR 1.08 (0.85-1.17)
[2019-12-28 14:02] LABS: APTT 27.6 SECONDS (22.8-39.4)
[2019-12-28 14:03] LABS: D-DIMER-QUANTITATIVE 0.37 ug/mLFEU (0.20-0.54)
[2019-12-28 14:05] LABS: CALC OSMOLALITY 280 mosm/kg (275-300); CALCIUM 8.7 mg/dL (8.5-10.1); CARBON DIOXIDE 31.3 mmol/L (21.0-32.0); CHLORIDE - SERUM 107 mmol/L (98-107); CREATININE - SERUM 1.1 mg/dL (0.6-1.3); GLUCOSE 101 mg/dL (74-106); POTASSIUM - SERUM 4.4 mmol/L (3.5-5.1); SODIUM 141 mmol/L (136-145); UREA NITROGEN 13 mg/dL (7-18); eGFR NON AFRICAN AMERICAN 53 mL/min (90-120)
[2019-12-28 14:17] LABS: ALBUMIN 3.1 g/dL (3.4-5.0); ALKALINE PHOSPHATASE 73 U/L (30-120); ALT (SGPT) 17 U/L (10-68); BILIRUBIN - TOTAL 0.51 mg/dL (0.2-1.3); CKMB 2.2 U/L (0.0-3.6); CREATINE KINASE 30 UL (21-215); TROPONIN-I 0.056 ng/mL (0.000-0.060)
[2019-12-28 14:27] LABS: EOSINOPHILS 3 % (0-7); LYMPHOCYTES 22 % (15-50); MONOCYTES 13 % (2-11); NEUTROPHILS 62 % (40-80); PLATELET ESTIMATE DECREASED
--- NOTE | 2019-12-28 15:10 | NUR ---
PATIENT RESTING WITH EYES CLOSED. NO DISTRESS NOTED. VSS WILL CONTINUE TO MONITOR.
[2019-12-28 15:11] VITALS: BP 131/68
--- NOTE | 2019-12-28 16:00 | NUR ---
REPORT CALLED TO GAURAV AT THIS TIME.
[2019-12-28 16:41] VITALS: BP 118/76; BMI 48.3
[2019-12-28 20:00] VITALS: BP 125/66
[2019-12-28 20:13] LABS: CKMB 1.9 U/L (0.0-3.6); CREATINE KINASE 22 UL (21-215); TROPONIN-I 0.052 ng/mL (0.000-0.060)
[2019-12-29 01:27] LABS: CKMB 1.2 U/L (0.0-3.6); CREATINE KINASE 21 UL (21-215); TROPONIN-I 0.054 ng/mL (0.000-0.060)
--- NOTE | 2019-12-29 02:00 | NUR ---
I have reviewed this patient and I concur with the Shift Assessment completed by the Licensed Practical Nurse today this shift.
--- NOTE | 2019-12-29 02:10 | NUR ---
RESTING WITH EYES CLOSED, RESPERATIONS EVEN, NO S/S DISTRESS NOTED.
[2019-12-29 04:00] VITALS: BP 137/62
[2019-12-29 06:20] LABS: BASOPHILS 0 % (0-2); EOSINOPHILS 1.1 % (0-7); HEMATOCRIT 40.5 % (36.0-48.0); HEMOGLOBIN 13.2 g/dL (12-16); IMMATURE GRANULOCYTES 0.4 % (0-5); LYMPHOCYTES 26.7 % (15-50); MCH 33.8 pg (26.0-34.0); MCHC 32.6 g/dL (31.0-37.0); MCV 103.6 fL (80.0-100.0); MEAN PLATELET VOLUME 10.3 fL (7.4-10.4); MONOCYTES 11.1 % (2-11); NEUTROPHILS 60.7 % (40-80); PLATELET COUNT 119 10x3/uL (130-400); RBC 3.91 10x6/uL (4.00-5.40); WBC 2.7 10x3/uL (4.8-10.8)
[2019-12-29 07:10] LABS: ALKALINE PHOSPHATASE 68 U/L (30-120); ALT (SGPT) 20 U/L (10-68); BILIRUBIN - TOTAL 0.53 mg/dL (0.2-1.3); CALC OSMOLALITY 281 mosm/kg (275-300); CALCIUM 8.5 mg/dL (8.5-10.1); CARBON DIOXIDE 31.6 mmol/L (21.0-32.0); CHLORIDE - SERUM 107 mmol/L (98-107); CKMB 1.3 U/L (0.0-3.6); CREATINE KINASE 16 UL (21-215); CREATININE - SERUM 1.2 mg/dL (0.6-1.3); GLUCOSE 87 mg/dL (74-106); MAGNESIUM - SERUM 2.2 mg/dL (1.8-2.4); POTASSIUM - SERUM 4.1 mmol/L (3.5-5.1); SODIUM 141 mmol/L (136-145); TROPONIN-I 0.052 ng/mL (0.000-0.060); eGFR NON AFRICAN AMERICAN 48 mL/min (90-120)
[2019-12-29 07:11] LABS: UREA NITROGEN 19 mg/dL (7-18)
--- NOTE | 2019-12-29 07:15 | NUR ---
REPORT RECEIVED FROM CONCRETE PAVER AND PATIENT CARE ASUMED. PATIENT LAYING IN BED ON RT SIDE WITH EYES CLOSED AND BREATHING EVENLY. WILL CONTINUE WITH PLAN OF CARE. SR UP X 2 BED IN LOW POSITION AND CALL LIGHT IN REACH.
[2019-12-29 10:05] VITALS: BP 141/75
[2019-12-29 12:57] VITALS: Ht 165.1 cm; Wt 137.3 kg
[2019-12-29 14:08] VITALS: BP 149/50
--- NOTE | 2019-12-29 14:32 | NUR ---
PATIENT HAD SHOWER AND COMPLETE LINEN CHANGE. PATIENT IN BS CHAIR. GAVE CUP OF COFFEE REQUESTED. PATIENT IS STABLE AND VSS. PATIENT DENIES ANY NEEDS OR PAIN. WILL CONTINUE TO MONITOR. SR UP X 2 BED IN LOW POSITION AND CALL LIGHT IN REACH.
--- NOTE | 2019-12-29 16:54 | NUR ---
HAVE MADE SEVERAL ATTEMPTS TO COLLECT URINE SPECIMEN BUT DUE TO PATIENT STRESS INCONTINENCE, UNABLE TO COLLECT SPECIMEN . PATIENT IV CAME OUT. RESITED IV TO LEFT INNER WRIST 22 GAUGE ONE ATTEMPT. WILL CONTINUE TO [facility]. SR UPX 2 BED IN LOW POSITION AND CALL LIGHT IN REACH.
[2019-12-29 18:23] VITALS: BP 152/71
[2019-12-29 19:01] LABS: UDS - AMPHET NEGATIVE QUAL (NEGATIVE); UDS - BARB NEGATIVE QUAL (NEGATIVE); UDS - BENZO NEGATIVE QUAL (NEGATIVE); UDS - COCAINE NEGATIVE QUAL (NEGATIVE); UDS - OPIATE POSITIVE QUAL (NEGATIVE); UDS - PCP NEGATIVE QUAL (NEGATIVE); UDS - THC NEGATIVE QUAL (NEGATIVE)
--- NOTE | 2019-12-29 19:16 | NUR ---
AROUSES AND DENIES NEEDS BED LOW AND LOCKED CALL LIGHT IS IN REACH
[2019-12-29 19:44] LABS: THYROID STIMULATING HORMONE 1.32 uIU/mL (0.36-3.74)
[2019-12-29 19:54] LABS: HIV 1 & 2- RAPID SCREEN POSITIVE (NEGATIVE)
[2019-12-29 20:00] VITALS: BP 169/70
[2019-12-30 04:00] VITALS: BP 134/67
--- NOTE | 2019-12-30 05:13 | NUR ---
I have reviewed this patient and I concur with the Shift Assessment completed by the Licensed Practical Nurse today this shift.
[2019-12-30 06:20] LABS: HEMATOCRIT 41.1 % (36.0-48.0); HEMOGLOBIN 13.3 g/dL (12-16); MCH 33.7 pg (26.0-34.0); MCHC 32.4 g/dL (31.0-37.0); MCV 104.1 fL (80.0-100.0); MEAN PLATELET VOLUME 10.5 fL (7.4-10.4); PLATELET COUNT 119 10x3/uL (130-400); RBC 3.95 10x6/uL (4.00-5.40); RDW 12.6 % (11.5-14.5); WBC 2.8 10x3/uL (4.8-10.8)
[2019-12-30 06:55] LABS: ANION GAP 11.3 mmol/L (8-16); BILIRUBIN - TOTAL 0.46 mg/dL (0.2-1.3); CALCIUM 8.5 mg/dL (8.5-10.1); CARBON DIOXIDE 26.2 mmol/L (21.0-32.0); CREATININE - SERUM 1.1 mg/dL (0.6-1.3); MAGNESIUM - SERUM 2.2 mg/dL (1.8-2.4); POTASSIUM - SERUM 4.5 mmol/L (3.5-5.1); PROTEIN - SERUM 5.6 g/dL (6.4-8.2)
--- NOTE | 2019-12-30 07:10 | NUR ---
REPORT RECEIVED FROM MARKETING OUTREACH COORDINATOR ANDPATIENT CARE ASSUMED. PATIENT LAYING IN BED ON BACK AWAKE,ALERT AND ORIENTED X 4. PATIENT COMPLAINS OF BACK, NASIR HIP PAIN AND LEG PAIN AND WEAKNESS THAT HAS BEEN CHRONIC FOR MONTHS. PATIENT STATES THAT SHE HAD XRAYS AND HAS APPT WITH PCP TO DISCUSS. WILL INFORM DR PRADO OR RUFINA THIS AM. WILL CONTINUE WITH PLAN OF CARE. SR UP X 2 BED IN LOW POSITION AND CALL LIGHT IN REACH.
[2019-12-30 09:03] LABS: LYMPHOCYTES 29 % (15-50); MONOCYTES 11 % (2-11); NEUTROPHILS 60 % (40-80); PLATELET ESTIMATE NORMAL
[2019-12-30 09:04] LABS: ANISOCYTOSIS OCC
[2019-12-30 10:01] VITALS: BP 134/62
--- NOTE | 2019-12-30 11:17 | NUR ---
PATIENT IV TO LT WRIST INFILLTRATED. IV DCD WITHOUT DIFFICULTY WITH ENTIRE CATHETER INTACT. DRSG APPLIED . WILL RE-SITE PIV.
[2019-12-30 15:09] VITALS: BP 152/75
--- NOTE | 2019-12-30 20:00 | NUR ---
REPORT AND INITIAL ROUNDS COMPLETED. PT RESTING IN BED. NO DISTRESS. CPOC.
[2019-12-30 20:50] VITALS: BP 171/74
--- NOTE | 2019-12-30 21:50 | NUR ---
BEDTIME MEDS GIVEN. PT TAKES HOME HIV MED. RESTING/WATCHING TV.
[2019-12-31 00:49] VITALS: BP 141/77
--- NOTE | 2019-12-31 01:23 | NUR ---
REPORT AND INITIAL ROUNDS COMPLETED. PT RESTING IN BED WITH NO DISTRESS. SR PER TELEMETRY. CALL LIGHT IN REACH. CPOC.
[2019-12-31 05:18] VITALS: BP 155/73
[2019-12-31 08:14] LABS: HEMATOCRIT 39.8 % (36.0-48.0); HEMOGLOBIN 12.9 g/dL (12-16); MCH 33.6 pg (26.0-34.0); MCHC 32.4 g/dL (31.0-37.0); MCV 103.6 fL (80.0-100.0); PLATELET COUNT 111 10x3/uL (130-400); RBC 3.84 10x6/uL (4.00-5.40); RDW 12.7 % (11.5-14.5); WBC 2.7 10x3/uL (4.8-10.8)
[2019-12-31 08:15] VITALS: BP 127/61
[2019-12-31 08:45] LABS: EOSINOPHILS 1 % (0-7); LYMPHOCYTES 31 % (15-50); MONOCYTES 4 % (2-11); NEUTROPHILS 63 % (40-80); PLATELET ESTIMATE NORMAL
[2019-12-31 08:48] LABS: ALBUMIN 2.9 g/dL (3.4-5.0); ANION GAP 8.1 mmol/L (8-16); BILIRUBIN - TOTAL 0.5 mg/dL (0.2-1.3); CALCIUM 8.4 mg/dL (8.5-10.1); CARBON DIOXIDE 28.4 mmol/L (21.0-32.0); CREATININE - SERUM 1.2 mg/dL (0.6-1.3); MAGNESIUM - SERUM 2.3 mg/dL (1.8-2.4); POTASSIUM - SERUM 4.5 mmol/L (3.5-5.1); PROTEIN - SERUM 5.9 g/dL (6.4-8.2)
[2019-12-31 11:23] VITALS: BP 118/59
--- NOTE | 2019-12-31 14:28 | NUR ---
LT WRIST IV HURTING PT WHEN FLUSHED, NOTED REDNESS TO SITE AND TENDER TO TOUCH. D/C IV WITH CATHETER TIP INTACT. NEW 22G IV STARTED TO RT WRIST X1 STICK.
[2019-12-31 15:44] VITALS: BP 129/59
--- NOTE | 2019-12-31 19:45 | NUR ---
REPORT RECIEVED AND INITIAL ROUNDS COMPLETED. PT RESTING IN BED. UPSEST WITH THE IV IN HER RIGHT INNER WRIST, SAYS IT HURTS. WILL ASSESS. RESPS EVEN/NONLABORED. PUREWICK IN PLACE DRAINING YELLOW URINE. CPOC.
[2019-12-31 20:00] VITALS: BP 155/78
[2020-01-01] VITALS: BP 150/47
--- NOTE | 2020-01-01 00:53 | NUR ---
ALL BEDTIME MEDS GIVEN. PT REQUESTED IV TO RIGHT WRIST BE REMOVED. DISCONTINUED IV AND WILL ATTEMPT RESITE. PT GIVEN SNACKS/DRINKS AND HAS ALSO BE CLEANED UP AND REPOSITIONED EARLIER BY STAFF.
[2020-01-01 05:40] LABS: HEMATOCRIT 39.6 % (36.0-48.0); HEMOGLOBIN 13.1 g/dL (12-16); LYMPHOCYTES 18.6 % (15-50); MCH 33.2 pg (26.0-34.0); MCHC 33.1 g/dL (31.0-37.0); MCV 100.3 fL (80.0-100.0); PLATELET COUNT 108 10x3/uL (130-400); RBC 3.95 10x6/uL (4.00-5.40); RDW 12.3 % (11.5-14.5); WBC 3.5 10x3/uL (4.8-10.8)
[2020-01-01 05:55] LABS: ALBUMIN 2.8 g/dL (3.4-5.0); ANION GAP 6.6 mmol/L (8-16); BILIRUBIN - TOTAL 0.42 mg/dL (0.2-1.3); CALCIUM 8.8 mg/dL (8.5-10.1); CARBON DIOXIDE 29.8 mmol/L (21.0-32.0); CREATININE - SERUM 1.2 mg/dL (0.6-1.3); MAGNESIUM - SERUM 2.3 mg/dL (1.8-2.4); POTASSIUM - SERUM 4.4 mmol/L (3.5-5.1); PROTEIN - SERUM 5.8 g/dL (6.4-8.2)
[2020-01-01 08:02] VITALS: BP 129/72
[2020-01-01 11:39] VITALS: BP 135/72
--- NOTE | 2020-01-01 13:00 | NUR ---
PT UP TO CHAIR, RESTING COMFORTABLY WITH EYES CLOSED. CALL LIGHT IN REACH, NAD NOTED, WILL CONTIUE TO MONITOR.
[2020-01-01 15:48] VITALS: BP 168/80
--- NOTE | 2020-01-01 19:30 | NUR ---
REPORT AND INITIAL ROUNDS COMPLETED. PT RESTING IN BED. NO DISTRESS. CPOC.
[2020-01-01 20:00] VITALS: BP 177/63
--- NOTE | 2020-01-01 21:37 | NUR ---
BEDTIME MEDS GIVEN. SNACKS REQUESTED.
[2020-01-02] VITALS: BP 147/59
[2020-01-02 04:00] VITALS: BP 148/68
[2020-01-02 07:01] LABS: HEMATOCRIT 40.6 % (36.0-48.0); HEMOGLOBIN 13.7 g/dL (12-16); LYMPHOCYTES 25.6 % (15-50); MCH 33.8 pg (26.0-34.0); MCHC 33.7 g/dL (31.0-37.0); MCV 100.2 fL (80.0-100.0); MEAN PLATELET VOLUME 10.1 fL (7.4-10.4); NEUTROPHILS 61.7 % (40-80); PLATELET COUNT 124 10x3/uL (130-400); RBC 4.05 10x6/uL (4.00-5.40); RDW 12.2 % (11.5-14.5)
[2020-01-02 07:07] LABS: ANION GAP 5.5 mmol/L (8-16); BILIRUBIN - TOTAL 0.54 mg/dL (0.2-1.3); CALCIUM 8.6 mg/dL (8.5-10.1); CARBON DIOXIDE 33.7 mmol/L (21.0-32.0); CREATININE - SERUM 1.2 mg/dL (0.6-1.3); MAGNESIUM - SERUM 2.2 mg/dL (1.8-2.4); POTASSIUM - SERUM 4.2 mmol/L (3.5-5.1); PROTEIN - SERUM 6.1 g/dL (6.4-8.2)
--- NOTE | 2020-01-02 08:33 | NUR ---
AM MEDS GIVEN AT THIS TIME. PT IN BED, EATING BREAKFAST, PT DENIES ANY NEEDS AT THIS TIME CALL LIGHT IN REACH, NAD NOTED, WILL CONTINUE TO MONITOR.
[2020-01-02 09:13] VITALS: BP 149/72
[2020-01-02 11:00] VITALS: BP 155/68
[2020-01-02 12:09] LABS: HIV AB INTERPRETATION HIV-1 Positive (())
--- NOTE | 2020-01-02 13:21 | NUR ---
Nutrition Follow-up: Eating well. Diet: Cardiac PO intake: 100% x 7 meals WT: 302# (01/01); 290# (12/28) Last BM: 12/31 Labs noted: Alb 2.0 Meds noted: Protonix, electrolyte protocol -Monitor wt; noted daily wts ordered. -RD following.
--- NOTE | 2020-01-02 14:11 | NUR ---
PROVIDED VERBAL AND WRITTEN DISCHARGE TEACHING TO PT, WHO VERBALIZED UNDERSTANDING REGARDING TEACHING. HEART MONITOR REMOVED AND TAKEN TO EXECUTIVE OFFICE MANAGER. PT WAITING ON RIDE, WILL NOTIFY NURSE WHEN READY FOR WHEELCHAIR.
--- NOTE | 2020-01-02 14:17 | MORECARE ---
CASE MANAGEMENT DISCHARGE SUMMARY PATIENT: JANELL FRANKLIN UNIT: [id number] ADM DATE: 12/30/19 AGE: 59 : 56 SEX: F ROOM/BED: D.5235 AUTHOR: SANDY,DOC PHYSICIAN: REFERRING PHYSICIAN: CARMELLA PRADO MD DATE OF SERVICE: 01/02/20 Discharge Plan Patient Name: JANELL FRANKLIN Facility[facility]:[place] : 1960 Planned Disposition: Home Anticipated Discharge Date: Discharge Date: Expected LOS: Initial Reviewer: [email or web address] Initial Review Date: 12/28/2019 Generated: 01/02/20 3:16 pm Comments DCP- Discharge Planning Updated by [email or web address]: Phoebe Medina on 01/02/20 1:[address] Patient Name: JANELL FRANKLIN Admission Status: ER Accout number: [id number] Admission Date: 12-30-2019 : 1960 Admission Diagnosis: Attending: ELIE Current LOS: 3 Anticipated DC Date: Planned Disposition: Home Primary Insurance: [employer] CHO[employer] PPO MCR ADVANT Discharge Planning Comments: CM met with patient to complete initial dc planning assessment. CM educated patient on the CM role and verbal consent given by patient to complete assessment. CM verified patient's address, phone number, and emergency contact phone numbers. Patient lives at home with her family. At discharge patient plans to return home and feels this is a safe discharge. CM discussed availability of home health, rehab services, and medical equipment. Patient denied known discharge needs at this time. States she has a clerical aide teacher from [facility] in [place] Transportation provider at discharge will be her [facility]. DC IMM delivered, explained, signed by the patient, and placed in chart. Signed form also left with the patient. CM will continue to follow and will assist as needed with dc plans/needs. Rail Operations Controller: Phoebe Medina MSN,RN,CM DCPIA - Discharge Planning Initial Assessment Updated by [email or web address]: Phoebe Medina on 01/02/20 2:12 pm * Is the patient Alert and Oriented? Yes * How many steps to enter\exit or inside your home? 4/0 * Pharmacy [facility] * Preadmission Environment Home with Family * ADLs Independent * Equipment Elevated [place] Seat Rolling Walker Shower Chair * Community resources currently utilized Private Duty Care * Please name any agencies selected above. [facility] * Additional services required to return to the preadmission environment? No * Can the patient safely return to the preadmission environment? Yes * Has this patient been hospitalized within the prior 30 days at any hospital? No Coverage Notice Reviewer: [email or web address] Rylan Medina Notice Issued Date-Time: 12/29/2019 13:32 Notice Type: Medicare Outpatient Observation Notice Notice Delivered To: Patient Relationship to Patient: Assistant Store Manager Operations Name: Delivery Method: HAND - Hand Delivered Kayla Days: Prior Verbal Notification: Recipient Understood Notice: Yes Recipient Signature: Yes Med Rec Note Co-signed by Attending: Coverage Notice Comment: BLUE SERVED, EXPLAINED, AND SIGNED BY PATIENT. THE ORIGINAL WAS PROVIDED TO THE PATIENT AND COPY PLACED ON CHART. Patient Name: JANELL FRANKLIN Page [phone] at 1417 All edits/amendments must be made on the electronic document DICTATION DATE: 01/02/206 CERTIFIED TECHNICIAN: WILMER 01/02/20 141 RPT#: [id number] DC DATE: STATUS: ADM IN [facility] [address] [place] [address] END OF REPORT
--- NOTE | 2020-01-02 14:57 | NUR ---
PT LEFT UNIT VIA WHEELCHAIR, WITH ALL BELONGINGS, NAD NOTED.
[2020-01-03 03:07] LABS: HEPATITIS C ANTIBODY 0.1 S/CO RAT (0.0-0.9)
[2020-01-04 10:11] LABS: HIV-1 RNA BY PCR <20 (())
== END 2020-01-02 15:05 | disposition home health service (06) | DRG 977 ==
LOC: D.ER 12:40 → D.M2 15:17 → OBSVTIME 15:17 → D.M2 16:01
PROVIDERS: Family Medicine; Internal Medicine Hematology & Oncology; ADMIT Family Medicine; ATTEND Family Medicine
DX: B20 Human immunodeficiency virus [HIV] disease (principal); F17.213 Nicotine dependence, cigarettes, with withdrawal; D61.818 Other pancytopenia; R42 Dizziness and giddiness; D75.89 Other specified diseases of blood and blood-forming organs; M16.0 Bilateral primary osteoarthritis of hip; D69.6 Thrombocytopenia, unspecified; I25.10 Atherosclerotic heart disease of native coronary artery without angina pectoris; E78.5 Hyperlipidemia, unspecified; I10 Essential (primary) hypertension; J44.9 Chronic obstructive pulmonary disease, unspecified